=== PATIENT | male | born 1970 | race Caucasian/White ===

== ENCOUNTER 2020-06-25 09:06 | Day surgery (SDC) | payer OTHER ==
[~2020-06-25] VITALS: Ht 172.7 cm; Wt 126.5 kg
[~2020-06-25 09:06] MED LIST: HYDACE5 PO; NAPR550 PO
[2020-06-25] MEDS ORDERED: ATOR20 PO (09:17)
--- NOTE | 2020-06-25 09:35 | NUR ---
Ambulatory in Day Surgery History, Chart, Medications and Allergies reviewed before start of procedure.Patient confirms NPO status and agrees with scheduled surgery. Patient states colon prep results clear.Lungs clear T/O to Auscultation. Patient States Post-Procedure ride home has been arranged WITH
--- NOTE | 2020-06-25 10:07 | NUR ---
06/25/20 Marvin Almanzar 3-LEAD EKG REVIEWED WITH PHYSICIAN PRIOR TO START OF PROCEDURE. Patient to ENDO 1History, Chart, Medications and Allergies reviewed before start of procedure.MONITOR INTACT WITH CONTINUOUS PULSE OXIMETRY AND INTERMITTENT BP.O2 VIA N/C INTACT THROUGHOUT SEDATION/PROCEDURE.MODERATE SEDATION
--- NOTE | 2020-06-25 11:16 | NUR ---
Patient up to Ambulate independently. Gait steady. Discharge instructions reviewed with patient. Patient verbalizes understanding. Copy given to patient to take home. Discharged via wheelchair to private car for ride home.
== END 2020-06-25 22:41 | disposition home or self-care (01) ==
LOC: ORSCMMR 09:06 → ORD 10:00 → ORSCMMR 22:41
PROVIDERS: Internal Medicine Gastroenterology
PROC: 0DBN8ZX Excision of Sigmoid Colon, Via Natural or Artificial Opening Endoscopic, Diagnostic (ICD-10-PCS; principal; 2020-06-25 10:00)
DX: K62.5 Hemorrhage of anus and rectum (principal); D12.5 Benign neoplasm of sigmoid colon; E78.00 Pure hypercholesterolemia, unspecified; Z79.899 Other long term (current) drug therapy
CPT/HCPCS: 88305; J2250; J3010; J7120

== ENCOUNTER → 2024-01-30 | Outpatient (CLI) | payer OTHER ==
[~2024-01-30] MED LIST changes: +ATOR20 PO
[2024-01-30 18:26] LABS: BASOPHILS ABSOLUTE AUTO 0.04 K/mm3 (0.00-0.23); BASOPHILS PERCENT AUTO 1 % (0-2); EOSINOPHILS ABSOLUTE AUTO 0.06 K/mm3 (0.00-0.68); EOSINOPHILS PERCENT AUTO 1 % (0-6); Hematocrit 46.5 % (37.0-53.0); Hemoglobin 15.9 g/dL (13.5-17.5); IMMATURE GRAN ABSOLUTE AUTO 0.02 K/mm3 (0.00-0.10); IMMATURE GRAN PERCENT AUTO 0 % (0-1); LYMPHOCYTES ABSOLUTE AUTO 2.54 K/mm3 (0.84-5.20); LYMPHOCYTES PERCENT AUTO 32 % (21-46); MONOCYTES ABSOLUTE AUTO 0.94 K/mm3 (0.16-1.47); MONOCYTES PERCENT AUTO 12 % (4-13); Mean Corpuscular HGB 29.9 pg (26.0-34.0); Mean Corpuscular HGB Conc 34.2 g/dL (31.5-36.5); Mean Corpuscular Volume 87 fL (80-100); Mean Platelet Volume 11.4 fL (9.1-12.4); NEUTROPHILS ABSOLUTE AUTO 4.27 K/mm3 (1.96-9.15); NEUTROPHILS PERCENT AUTO 54 % (41-73); Platelet Count 214 K/mm3 (150-400); RDW Coefficient Variation 13.1 % (11.7-14.2); RDW Standard Deviation 41.9 fL (35.1-46.3); Red Blood Cell Count 5.32 M/mm3 (4.30-5.90); White Blood Cell Count 7.87 K/mm3 (4.00-11.30)
[2024-01-30 19:20] LABS: Albumin, Blood 3.9 g/dL (3.4-5.0); Bilirubin, Total 0.5 mg/dL (0.1-1.0); Bun/Creatinine Ratio 19.4 (12.0-20.0); Calcium, Blood 9.5 mg/dL (8.5-10.1); Creatinine, Blood 0.88 mg/dL (0.60-1.20); Globulin, Blood 3.9 g/dL (2.2-4.0); Potassium, Blood 3.6 mmol/L (3.5-5.5); Total Protein, Blood 7.8 g/dL (6.4-8.2)
== END ==
LOC: LAB SHORT 17:10 → LAB 17:10
PROVIDERS: Physician Assistant
DX: R10.9 Unspecified abdominal pain (principal)
CPT/HCPCS: 80053; 83690; 85025

== ENCOUNTER 2024-03-11 05:20 | Observation (INO) | payer OTHER ==
[2024-03-11] VITALS (12 sets, daily range): BP systolic 108–132; BP diastolic 62–88
[~2024-03-11] VITALS: Ht 172.7 cm; Wt 108.9 kg
[2024-03-11] MEDS ORDERED: Atropine/Scopalam/Hyoscam/PB 5 ML UDC PO ONE (05:35)
[2024-03-11] MEDS ORDERED: Mag Hydrox/AL Hydrox/Simeth 30 ML UDC PO ONE (05:35)
[2024-03-11] MEDS ORDERED: Lidocaine 2% Viscous Soln 15 ML UDC PO ONE (05:35)
[2024-03-11 05:49] LABS: BASOPHILS ABSOLUTE AUTO 0.02 K/mm3 (0.00-0.23); BASOPHILS PERCENT AUTO 0 % (0-2); EOSINOPHILS ABSOLUTE AUTO 0.06 K/mm3 (0.00-0.68); EOSINOPHILS PERCENT AUTO 1 % (0-6); Hematocrit 45.6 % (37.0-53.0); Hemoglobin 16.3 g/dL (13.5-17.5); IMMATURE GRAN ABSOLUTE AUTO 0.02 K/mm3 (0.00-0.10); IMMATURE GRAN PERCENT AUTO 0 % (0-1); LYMPHOCYTES ABSOLUTE AUTO 2.61 K/mm3 (0.84-5.20); LYMPHOCYTES PERCENT AUTO 27 % (21-46); MONOCYTES ABSOLUTE AUTO 0.99 K/mm3 (0.16-1.47); MONOCYTES PERCENT AUTO 10 % (4-13); Mean Corpuscular HGB 30.5 pg (26.0-34.0); Mean Corpuscular HGB Conc 35.7 g/dL (31.5-36.5); Mean Corpuscular Volume 85 fL (80-100); Mean Platelet Volume 11.2 fL (9.1-12.4); NEUTROPHILS ABSOLUTE AUTO 5.96 K/mm3 (1.96-9.15); NEUTROPHILS PERCENT AUTO 62 % (41-73); Platelet Count 222 K/mm3 (150-400); RDW Coefficient Variation 13.2 % (11.7-14.2); RDW Standard Deviation 40.8 fL (35.1-46.3); Red Blood Cell Count 5.35 M/mm3 (4.30-5.90); White Blood Cell Count 9.66 K/mm3 (4.00-11.30)
[2024-03-11] MEDS ORDERED: Ondansetron HCl 2 MG / ML 2ML Vial IV ONE (06:00)
[2024-03-11] MEDS ORDERED: Morphine Sulfate 4 MG/1 ML Injection IV ONE (06:00)
[2024-03-11] MEDS ORDERED: OMEP20ER PO (06:08)
[2024-03-11 06:10] LABS: Albumin, Blood 3.8 g/dL (3.4-5.0); Bilirubin, Total 0.7 mg/dL (0.1-1.0); Bun/Creatinine Ratio 16.4 (12.0-20.0); Calcium, Blood 9.3 mg/dL (8.5-10.1); Creatinine, Blood 0.91 mg/dL (0.60-1.20); Globulin, Blood 3.7 g/dL (2.2-4.0); Potassium, Blood 3.6 mmol/L (3.5-5.5); Total Protein, Blood 7.5 g/dL (6.4-8.2)
[2024-03-11] MEDS ORDERED: Ampicillin Sod/Sulbactam Sod 3 GM in NS 100 ML IV ONE (07:55)
[2024-03-11] MEDS ORDERED: Lactated Ringer's 1,000 ML IV SCH (07:55)
[2024-03-11] MEDS ORDERED: Ondansetron HCl 2 MG / ML 2ML Vial IV PRN (09:25)
[2024-03-11] MEDS ORDERED: OxyCODONE HCL 5 MG TAB PO PRN (09:25)
[2024-03-11] MEDS ORDERED: FLU VACC TS2024-25(6MOS UP)/PF 45 MCG/0.5 ML SYRINGE IM SCH (09:30)
[2024-03-11] MEDS ORDERED: HYDROmorphone HCl/Pf 1MG SYR IV PRN (09:30)
[2024-03-11] MEDS ORDERED: Acetaminophen 650 MG Supp PR PRN (09:30)
[2024-03-11] MEDS ORDERED: Ketorolac Tromethamine 15mg Vial IV PRN (09:35)
[2024-03-11] MEDS ORDERED: CeFAZolin Sodium 2,000 MG in NS 100 ML IV SCH (09:40)
[2024-03-11] MEDS ORDERED: Indocyanine Green 25 MG Vial IV ONE (10:00)
--- NOTE | 2024-03-11 10:29 | NUR ---
PT ARRIVED TO FLOOR VIA WHEELCHAIR FROM ER. ORIENTED TO ROOM. VSS. DECLINES PAIN AT THIS TIME. A&O X4. AT BEDSIDE. CALL LIGHT WITHIN REACH.
[2024-03-11] MEDS ORDERED: Lactated Ringer's 1,000 ML IV ONE (10:31)
[2024-03-11] MEDS ORDERED: Rocuronium Bromide 10 MG/ML 5ML Injection IV ONE ×2 (11:01→11:55)
[2024-03-11] MEDS ORDERED: FentaNYL Citrate 50 MCG/ML 2 ML Injection ONE (11:01)
[2024-03-11] MEDS ORDERED: propofoL 20 ML IV ONE (11:01)
[2024-03-11] MEDS ORDERED: Bupivacaine 0.5% HCl 5 MG/ML 30MLVIAL ONE (11:05)
[2024-03-11] MEDS ORDERED: CeFAZolin Sodium 2,000 MG VIAL ONE (11:07)
[2024-03-11] MEDS ORDERED: Acetaminophen 325 MG TABLET PO PRN (11:15)
[2024-03-11] MEDS ORDERED: HYDROcodone 5-APAP 325 TAB PO PRN (11:15)
[2024-03-11] MEDS ORDERED: Dexamethasone Sod Phos 10 MG/ML 1ML VIAL ONE (11:29)
[2024-03-11] MEDS ORDERED: Ketorolac Tromethamine 30mg Vial ONE (11:29)
[2024-03-11] MEDS ORDERED: Ondansetron HCl 2 MG / ML 2ML Vial ONE (11:29)
[2024-03-11] MEDS ORDERED: HYDROCODONE-AC1 EA19 PO (11:37)
[2024-03-11] MEDS ORDERED: IBUP600 PO (11:37)
[2024-03-11] MEDS ORDERED: Sugammadex Sodium 200 MG/2ML SDV (100 MG/ML) ONE (12:39)
[2024-03-11] MEDS ORDERED: HYDROmorphone HCl/Pf 1MG SYR ONE (13:51)
--- NOTE | 2024-03-11 14:27 | NUR ---
PT ARRIVED TO FLOOR FROM PACU ON [place]. PT WAS ABLE TO SLIDE OVER TO HOSPITAL BED HIMSELF. A&O X4. PLEASENT MOOD. VSS. FLUIDS RUNNING AT TKO. LAP SITES X3 CLOSED WITH WOUND GLUE. FARHAN DRAIN BULB COMPRESSED AND DRAINING SANGUINEOUS FLUID. SANGINEOUS SUBSTANCE LEAKING FROM DRAIN SITE, CLEANED UP WITH WOUND PRIVATE WATCHMAN AND STERILE GAUZE. PT STATES THAT PAIN IS MANAGED AT THIS TIME. EDUCATED PT ON PAIN MANAGEMENT. AT BEDSIDE. BED IN LOWEST POSITION AND CALL LIGHT WITHIN REACH.
--- NOTE | 2024-03-11 17:58 | NUR ---
SHIFT SUMMARY LAP SITES X4 C/D/I CLOSED WITH WOUND GLUE. FARHAN COMPRESSED AND DRAINING SMALL AMOUNTS OF SANGUINEOUS FLUIDS. ABDOMEN MILDLY DESTENDED, TENDER TO PALP RUQ. DENIES PAIN OR THE NEED FOR PAIN MEDICATION AT THIS TIME. DENIES N/V. EATING/DRINKING/VOIDING WITHOUT DIFFICULTY. AT BEDSIDE. BED IN LOWEST POSITION, CALL LIGHT WITHIN REACH.
[2024-03-11] MEDS ORDERED: Sennosides 8.6 MG Tab PO SCH (21:00)
[2024-03-11] MEDS ORDERED: Docusate Sodium 100 MG Cap PO SCH (21:00)
[2024-03-12 04:23] VITALS: BP 131/80
[2024-03-12 04:45] LABS: BASOPHILS ABSOLUTE AUTO 0.01 K/mm3 (0.00-0.23); BASOPHILS PERCENT AUTO 0 % (0-2); EOSINOPHILS PERCENT AUTO 0 % (0-6); Hematocrit 41.2 % (37.0-53.0); Hemoglobin 14.2 g/dL (13.5-17.5); IMMATURE GRAN ABSOLUTE AUTO 0.03 K/mm3 (0.00-0.10); IMMATURE GRAN PERCENT AUTO 0 % (0-1); LYMPHOCYTES ABSOLUTE AUTO 1.82 K/mm3 (0.84-5.20); LYMPHOCYTES PERCENT AUTO 17 % (21-46); MONOCYTES ABSOLUTE AUTO 0.88 K/mm3 (0.16-1.47); MONOCYTES PERCENT AUTO 8 % (4-13); Mean Corpuscular HGB 30.3 pg (26.0-34.0); Mean Corpuscular HGB Conc 34.5 g/dL (31.5-36.5); Mean Corpuscular Volume 88 fL (80-100); Mean Platelet Volume 11.3 fL (9.1-12.4); NEUTROPHILS ABSOLUTE AUTO 7.71 K/mm3 (1.96-9.15); NEUTROPHILS PERCENT AUTO 74 % (41-73); Platelet Count 194 K/mm3 (150-400); RDW Coefficient Variation 13.5 % (11.7-14.2); RDW Standard Deviation 43.8 fL (35.1-46.3); Red Blood Cell Count 4.68 M/mm3 (4.30-5.90); White Blood Cell Count 10.45 K/mm3 (4.00-11.30)
[2024-03-12 05:08] LABS: Albumin, Blood 3.3 g/dL (3.4-5.0); Bilirubin, Total 0.7 mg/dL (0.1-1.0); Bun/Creatinine Ratio 13.7 (12.0-20.0); Calcium, Blood 9.1 mg/dL (8.5-10.1); Creatinine, Blood 0.88 mg/dL (0.60-1.20); Globulin, Blood 3.2 g/dL (2.2-4.0); Potassium, Blood 4.2 mmol/L (3.5-5.5); Total Protein, Blood 6.5 g/dL (6.4-8.2)
--- NOTE | 2024-03-12 05:52 | NUR ---
POD 1 S/P LAP [place]. TEGADERM REPLACED DUE TO SHADOWING OF FARHAN DRAIN, FARHAN DRAINING 30ML. LAP SITES CLEAN, DRY AND GLUED. PT TOLERATING REGULAR PO INTAKE. PAIN MANAGED PER EMAR. PT UP IN ROOM INDEPEND, PLANS TO WALK IN HALLWAY TODAY. IV SL. VOIDING IND. PT CURRENTLY RESTING IN BED WITH EYES CLOSED, EVEN RESPIRATIONS AND CALL LIGHT IN REACH. PLAN TO GIVE REPORT TO ONCOMING RN.
[2024-03-12] MEDS ORDERED: Omeprazole 20 MG CapCR PO SCH (06:00)
[2024-03-12 07:15] VITALS: BP 108/75
--- NOTE | 2024-03-12 14:00 | NUR ---
dr barrera in to see pt.
[2024-03-12 14:52] VITALS: BP 118/83
--- NOTE | 2024-03-12 15:29 | NUR ---
discharged REVIEWED DC INSTRUCTIONS W/PT; VERBALIZED UNDERSTANDING. REVIEWED FARHAN DRAIN CARE W/PT AND ; VERBALIZED UNDERSTANDING. IV DC'D AND VSS. PT LEFT UNIT IN WC W/POSSESSIONS AND DC PAPERWORK IN HAND, ACCOMPANIED BY SPOUSE.
== END 2024-03-12 15:08 | disposition home or self-care (01) ==
LOC: ER 05:20 → SURS 05:21
PROVIDERS: Student in an Organized Health Care Education/Training Program; ADMIT Surgery
PROC: 8E0W4CZ Robotic Assisted Procedure of Trunk Region, Percutaneous Endoscopic Approach (ICD-10-PCS; principal; 2024-03-11 13:30)
PROC: 0FT44ZZ Resection of Gallbladder, Percutaneous Endoscopic Approach (ICD-10-PCS; principal; 2024-03-11 13:30)
DX: K81.2 Acute cholecystitis with chronic cholecystitis (principal); K21.9 Gastro-esophageal reflux disease without esophagitis; E78.00 Pure hypercholesterolemia, unspecified; Z79.899 Other long term (current) drug therapy; Z87.891 Personal history of nicotine dependence
CPT/HCPCS: 36415; 71045; 76705; 80053; 83690; 84484; 85025; 88304; 93005; 93010; 96361; 96365; 96375; 99285-25; A9270; G0378; J0295; J0690; J1100; J1170; J1885; J2270; J2405; J2704; J3010; J7120

== ENCOUNTER 2025-02-18 13:22 | Emergency (ER) | payer OTHER ==
[~2025-02-18] VITALS: Ht 175.3 cm; Wt 120.7 kg
[~2025-02-18 13:22] MED LIST changes: +HYDROCODONE-AC1 EA19 PO; +IBUP600 PO; +OMEP20ER PO
[2025-02-18 14:18] LABS: BASOPHILS ABSOLUTE AUTO 0.03 K/mm3 (0.00-0.23); BASOPHILS PERCENT AUTO 0 % (0-2); EOSINOPHILS ABSOLUTE AUTO 0.06 K/mm3 (0.00-0.68); EOSINOPHILS PERCENT AUTO 1 % (0-6); Hematocrit 45.4 % (37.0-53.0); Hemoglobin 15.9 g/dL (13.5-17.5); IMMATURE GRAN ABSOLUTE AUTO 0.03 K/mm3 (0.00-0.10); IMMATURE GRAN PERCENT AUTO 0 % (0-1); LYMPHOCYTES ABSOLUTE AUTO 1.97 K/mm3 (0.84-5.20); LYMPHOCYTES PERCENT AUTO 26 % (21-46); MONOCYTES ABSOLUTE AUTO 0.72 K/mm3 (0.16-1.47); MONOCYTES PERCENT AUTO 9 % (4-13); Mean Corpuscular HGB Conc 35.0 g/dL (31.5-36.5); Mean Corpuscular Volume 88 fL (80-100); NEUTROPHILS ABSOLUTE AUTO 4.82 K/mm3 (1.96-9.15); NEUTROPHILS PERCENT AUTO 63 % (41-73); NRBC ABSOLUTE 0.00 K/mm3 (0.00-0.02); NRBC Auto 0.0 /100 WBC (0.0-0.2); Platelet Count 206 K/mm3 (150-400); RDW Coefficient Variation 13.2 % (11.7-14.2); RDW Standard Deviation 42.8 fL (35.1-46.3)
[2025-02-18 14:28] LABS: Alanine Aminotransfer (ALT/SGP 36.0 U/L (12-78); Albumin, Blood 3.9 g/dL (3.4-5.0); Albumin/Globulin Ratio 1.1 (0.8-1.8); Anion Gap 9.0 mmol/L (3-11); Aspartate Aminotrans (AST/SGOT 23.0 U/L (12-37); Bilirubin, Total 0.9 mg/dL (0.1-1.0); Blood Urea Nitrogen 11.0 mg/dL (8-24); CO2, Blood 27.0 mmol/L (21-32); Calcium, Blood 8.8 mg/dL (8.5-10.1); Chloride, Blood 105.0 mmol/L (98-108); Creatinine, Blood 0.79 mg/dL (0.60-1.20); Globulin, Blood 3.5 g/dL (2.2-4.0); Glucose, Blood 101.0 mg/dL (70-99); Potassium, Blood 3.6 mmol/L (3.5-5.5); Sodium, Blood 137.0 mmol/L (136-145); Total Protein, Blood 7.4 g/dL (6.4-8.2)
[2025-02-18] MEDS ORDERED: Ondansetron HCl 2 MG / ML 2ML Vial IV ONE (17:20)
[2025-02-18] MEDS ORDERED: Lidocaine 2% Viscous Soln 15 ML UDC PO ONE (17:20)
[2025-02-18] MEDS ORDERED: Atropine/Scopalam/Hyoscam/PB 5 ML UDC PO ONE (17:20)
[2025-02-18] MEDS ORDERED: OMEP20ER PO (17:45)
[2025-02-18 17:54] VITALS: BP 133/90
[2025-02-18] MEDS ORDERED: IBUP600 PO (22:16)
[2025-02-18] MEDS ORDERED: ACET500 PO (22:16)
[2025-02-18] MEDS ORDERED: ONDA4 PO (22:16)
== END 2025-02-18 17:55 | disposition home or self-care (01) ==
LOC: ER 13:22
PROVIDERS: Physician Assistant
DX: R10.13 Epigastric pain (principal); E78.00 Pure hypercholesterolemia, unspecified; Z87.891 Personal history of nicotine dependence; Z79.899 Other long term (current) drug therapy
CPT/HCPCS: 76705; 80053; 83690; 85025; 93005; 93010; 96374; 99284-25; A9270; J2405

== ENCOUNTER 2025-02-18 20:37 | Emergency (ER) | payer OTHER ==
[~2025-02-18] VITALS: Ht 175.3 cm; Wt 120.7 kg
[2025-02-18] MEDS ORDERED: Morphine Sulfate 4 MG/1 ML Injection IV ONE (21:30)
[2025-02-18] MEDS ORDERED: NS 1,000 ML IV SCH (21:30)
[2025-02-18] MEDS ORDERED: Ondansetron HCl 2 MG / ML 2ML Vial IV ONE (21:30)
[2025-02-18 21:37] LABS: BASOPHILS ABSOLUTE AUTO 0.03 K/mm3 (0.00-0.23); BASOPHILS PERCENT AUTO 0 % (0-2); EOSINOPHILS ABSOLUTE AUTO 0.02 K/mm3 (0.00-0.68); EOSINOPHILS PERCENT AUTO 0 % (0-6); Hematocrit 46.5 % (37.0-53.0); Hemoglobin 16.9 g/dL (13.5-17.5); IMMATURE GRAN ABSOLUTE AUTO 0.03 K/mm3 (0.00-0.10); IMMATURE GRAN PERCENT AUTO 0 % (0-1); LYMPHOCYTES ABSOLUTE AUTO 2.81 K/mm3 (0.84-5.20); LYMPHOCYTES PERCENT AUTO 24 % (21-46); MONOCYTES ABSOLUTE AUTO 0.92 K/mm3 (0.16-1.47); MONOCYTES PERCENT AUTO 8 % (4-13); Mean Corpuscular HGB Conc 36.3 g/dL (31.5-36.5); Mean Corpuscular Volume 85 fL (80-100); NEUTROPHILS ABSOLUTE AUTO 7.81 K/mm3 (1.96-9.15); NEUTROPHILS PERCENT AUTO 67 % (41-73); NRBC ABSOLUTE 0.00 K/mm3 (0.00-0.02); NRBC Auto 0.0 /100 WBC (0.0-0.2); Platelet Count 246 K/mm3 (150-400); RDW Coefficient Variation 12.9 % (11.7-14.2); RDW Standard Deviation 39.7 fL (35.1-46.3)
[2025-02-18 22:00] VITALS: BP 129/77
[2025-02-18 22:00] LABS: Alanine Aminotransfer (ALT/SGP 37 U/L (12-78); Albumin, Blood 4.2 g/dL (3.4-5.0); Albumin/Globulin Ratio 1.1 (0.8-1.8); Anion Gap 14 mmol/L (3-11); Aspartate Aminotrans (AST/SGOT 23 U/L (12-37); Bilirubin, Total 1.2 mg/dL (0.1-1.0); Blood Urea Nitrogen 10 mg/dL (8-24); CO2, Blood 20 mmol/L (21-32); Calcium, Blood 9.3 mg/dL (8.5-10.1); Chloride, Blood 105 mmol/L (98-108); Creatinine, Blood 0.83 mg/dL (0.60-1.20); Ethanol (Alcohol), Blood, Med <3 mg/dL; Globulin, Blood 3.8 g/dL (2.2-4.0); Glucose, Blood 117 mg/dL (70-99); Magnesium, Blood 2.0 mg/dL (1.6-2.4); Potassium, Blood 3.5 mmol/L (3.5-5.5); Sodium, Blood 135 mmol/L (136-145); Total Protein, Blood 8.0 g/dL (6.4-8.2)
[2025-02-18] MEDS ORDERED: ACET500 PO (22:16)
[2025-02-18] MEDS ORDERED: IBUP600 PO (22:16)
[2025-02-18] MEDS ORDERED: ONDA4 PO (22:16)
== END 2025-02-18 23:04 | disposition home or self-care (01) ==
LOC: ER 20:37
PROVIDERS: Emergency Medicine
DX: K80.20 Calculus of gallbladder without cholecystitis without obstruction (principal); Z79.899 Other long term (current) drug therapy; K21.9 Gastro-esophageal reflux disease without esophagitis; Z87.891 Personal history of nicotine dependence
CPT/HCPCS: 74177; 80053; 80320; 83690; 83735; 85025; 93005; 93010; 96361; 96374-59; 96375; 99284-25; J2270; J2405; J7030; Q9967

== ENCOUNTER 2025-03-29 08:44 | Day surgery (SDC) | payer OTHER ==
[2025-03-29] VITALS (14 sets, daily range): BP systolic 119–139; BP diastolic 70–90
[~2025-03-29] VITALS: Ht 170.2 cm; Wt 115.9 kg
[~2025-03-29 08:44] MED LIST changes: +ACET500 PO; +ONDA4 PO
--- NOTE | 2025-03-29 09:23 | NUR ---
Pre-Op teaching done. Pt verbalizes understanding. Ambulatory in Day Surgery. History, Chart, Medications and Allergies reviewed before start of procedure. Patient confirms NPO status and agrees with scheduled surgery. Patient States Post-Procedure ride home has been arranged.
[2025-03-29] MEDS ORDERED: Rocuronium Bromide 10 MG/ML 5ML Injection IV ONE (12:19)
[2025-03-29] MEDS ORDERED: FentaNYL Citrate 50 MCG/ML 2 ML Injection ONE (12:19)
[2025-03-29] MEDS ORDERED: Bupivacaine 0.25% Epi 1:200000 30 ML Vial ONE (13:07)
[2025-03-29] MEDS ORDERED: Sugammadex Sodium 200 MG/2ML SDV (100 MG/ML) ONE (13:30)
[2025-03-29] MEDS ORDERED: HYDROmorphone HCl/Pf 1MG SYR ONE ×2 (13:43→15:39)
[2025-03-29] MEDS ORDERED: HYDROmorphone HCl/Pf 1MG SYR IV PRN ×2 (15:05)
[2025-03-29] MEDS ORDERED: Labetalol HCL 5 MG/ML 4ML Injection (Single Dose) IV PRN (15:05)
[2025-03-29] MEDS ORDERED: FentaNYL Citrate 50 MCG/ML 2 ML Injection IV PRN ×2 (15:05)
[2025-03-29] MEDS ORDERED: Ondansetron HCl 2 MG / ML 2ML Vial IV PRN (15:10)
[2025-03-29] MEDS ORDERED: Ketorolac Tromethamine 30mg Vial ONE (15:39)
[2025-03-29] MEDS ORDERED: HYDROcodone 5-APAP 325 TAB PO PRN (15:45)
--- NOTE | 2025-03-29 17:28 | NUR ---
TO STEP POST ROBOTIC LAP DIAGNOSTIC. ABD INCISIONS X 4 CDI WITH SURGICAL GLUE. 7/10 PAIN. NASIR PO WATER AT THIS TIME, DECLINES ANY FOOD. 25MCG FENTANYL GIVEN WITH [address] VELA TO CALL SCRIPT IN TO PT PHARMACY. VERBALIZED UNDERSTANDING OF DC INSTRUCTIONS, FOLLOW UP, MEDICATIONS, WOUND CARE. DC'D IV INTACT. DC'D VIA WC TO PRIVATE CAR WITH CLINICAL TRAINING COORDINATOR.
== END 2025-03-29 17:15 | disposition home or self-care (01) ==
LOC: ORSCMMR 08:44 → ORD 10:30 → ORSCMMR 10:30
PROVIDERS: Surgery
PROC: 8E0W4CZ Robotic Assisted Procedure of Trunk Region, Percutaneous Endoscopic Approach (ICD-10-PCS; principal; 2025-03-29 10:30)
PROC: 0FT44ZZ Resection of Gallbladder, Percutaneous Endoscopic Approach (ICD-10-PCS; principal; 2025-03-29 10:30)
DX: K91.5 Postcholecystectomy syndrome (principal); K80.10 Calculus of gallbladder with chronic cholecystitis without obstruction; K21.9 Gastro-esophageal reflux disease without esophagitis; Z87.891 Personal history of nicotine dependence; K76.0 Fatty (change of) liver, not elsewhere classified
CPT/HCPCS: 88304; A9270; J1171; J1885; J2704; J3010; J7120